=== PATIENT | male | born 1970 | race Caucasian/White ===

== ENCOUNTER 2023-05-04 15:09 | Outpatient (OUT) | payer OTHER, SELFPAY ==
--- NOTE | 2023-05-04 | XR_ITS ---
The [address] [address] Patient Name: SERENA CONTRERAS MRN: [id number] date: 1970 Sex: M Assigned Patient Location: Current Patient Location: Accession/Order Number: [id number] Exam Date: 05/04/2023 14:50 Report Date: 05/04/2023 15:32 At the request of: LUPE MCMAHON Procedure: XR foot RT min 3V PROCEDURE: XR foot RT min 3V COMPARISON: None. HISTORY: RIGHT FOOT PAIN FINDINGS: BONES:No acute fracture or dislocation. Enthesopathic spurring Achilles insertion of the calcaneus. Degenerative changes most significant at the first metatarsal-phalangeal joint SOFT TISSUES:Negative. No visible soft tissue swelling. EFFUSION:None visible. OTHER: Negative. XR/XR foot RT min 3V IMPRESSION: No acute abnormality Electronically authenticated by: CHARLEEN HARDY Date: 05/04/2023 15:32
== END 2023-05-04 15:10 | disposition home or self-care (01) ==
LOC: EC 15:09
PROVIDERS: Visit Provider Podiatrist Foot & Ankle Surgery
DX: M79.671 Pain in right foot (principal)
CPT/HCPCS: 73630

== ENCOUNTER 2023-06-02 20:08 | Emergency (ER) | payer OTHER, SELFPAY ==
[2023-06-02 20:12] VITALS: BP 157/91; PULSE 60; TEMP 36.3; O2SAT 98; BMI 26.4
--- OUTSIDE RECORDS SUMMARY | 2023-06-02 20:18 | XMS_ITS | CCD ---
Author Organization [facility] Care Team Providers Care Corporate Development Officer Name Role Phone JEN, DR SKY Admitting Unavailable JEN, DR SKY Attending Unavailable JEN, DR SKY Primary Care Unavailable JEN, DR SKY Consulting Unavailable LUPE DUVAL Consulting Unavailable DO Ishmael Hassan Attending Provider Ishmael Hassan Admitting Unavailable Itsylvester, Ishmael Attending Unavailable Itsylvester, Ishmael Primary Care Unavailable ANGELIQUE GUAJARDO Attending Unavailable JENJOSE DANIEL Attending Unavailable JENJOSE DANIEL Attending Unavailable KARLA NOLAN Attending Unavailable JEN, JOSE DANIEL Monge Attending Unavailable Problems Active Problems Problem Classification Problem Date Documented Da te Episodic/Chronic Other skin disorders (1 source) Localized swelling, mass and lump, neck; Translations: [Localized swelling, mass and lump, neck] Onset: 05-24-2022 Episodic Unclassified (3 sources) COUGH, UNSPECIFIED; Translations: [COUGH, UNSPECIFIED] Onset: 05-06-2022 Past or Other Problems Problem Classification Problem Date Documented Da te Episodic/Chronic Unclassified (1 source) COUGH, UNSPECIFIED; Translations: [COUGH, UNSPECIFIED] Onset: 05-05-2022 Results Test Name Value Interpretation Reference Range Facil fabián Daniel 05-24-2022 L --- Specimen: [id number] Received: 05/25/22 Status: CHARI Caldwellfaye Num: [id number] Spec Type: Surgical Subm Dr: Ishmael Hassan DO Tissues: A Lipoma (RT FOREARM) B Lipoma (POSTERIOR NECK) Procedures: HE/2, Gross/Micro L3/2 Age/ Patient Sex Location Account Attending Physician Serena Contreras 51/M OR [id number] Ishmael Hassan DO SPEC NUM: [id number] RECD: 05/25/22 STATUS: CHARI JUNAID NUM: [id number] [place]: 05/24/22- SUBM DR: Ishmael Hassan DO ENTERED: 05/25/[address]: [facility] SPEC TYPE: Surgical DEPT: S ORDERED: HE/2, Gross/Micro L3/2 ORDERED: HE/2, Gross/Micro L3/2 Pathological Diagnosis A. Soft tissue, right forearm, excision: - -Changes consistent with angiolipoma. B. Soft tissue, posterior neck, excision: - Changes consistent with lipoma. Clinical Information Posterior neck and right forearm mass Gross Description A. Received in formalin labeled with the patient's name, number and right forearm lipoma is a 2.5 x 2.4 x 1.2 cm portion of yellow, lobular fat but is partially surfaced by a thin, translucent membrane. The cut surface is yellow-de souza, lobular. Textile Artist sections are submitted in one cassette labeled A1. B. Received in formalin labeled with the patient's name, number and posterior neck lipoma is a 4.5 x 3.7 x 1.3 cm aggregate of yellow-de souza, rubbery tissue with a yellow, lobular cut surface. Textile Artist sections are submitted in one cassette labeled B1. Specimen: [id number] Received: 05/25/22 Status: CHARI Ching Num: [id number] Spec Type: Surgical Subm Dr: Ishmael Hassan DO Tissues: A Lipoma (RT FOREARM) B Lipoma (POSTERIOR NECK) Procedures: HE/Zabrina Sinclair/Micro L3/2 Patient: Serena Contreras [id number] (Continued) Specimen: Received: 05/25/22 (Continued) Signed (signature on file) Thao Vazquez MD 05/26/22 1055 Specimen: Received: 05/25/22 Status: CHARI Caldwellfaye Num: [id number] Spec Type: Surgical Subm Dr: Ishmael Hassan DO Tissues: A Lipoma (RT FOREARM) B Lipoma (POSTERIOR NECK) Procedures: HE/2, Gross/Micro L3/2 Patient: Serena Contreras [id number] (Continued) Specimen: Received: 05/25/22 (Continued) Microscopic Description A. One glass slide with H E stained material has been examined. The microscopic findings support the above pathologic diagnosis. B. One glass slide with H E stained material has been examined. The microscopic findings support the above pathologic diagnosis. CPT Codes 18471?2 Specimen: [id number] Received: 05/25/22 Status: CHARI Ching Num: [id number] Spec Type: Surgical Subm Dr: Ishmael Hassan DO Tissues: A Lipoma (RT FOREARM) B Lipoma (POSTERIOR NECK) Procedures: CHITRA, Zabrina/Micro L3/2 Patient: Serena Contreras [id number] (Continued) Signed (signature on file) Thao Vazquez MD 05/26/22 1055 Normal [facility] XR CHEST 2 Von 05-05-2022 XR CHEST 2 V EXAM: XR CHEST 2 V HISTORY: Cough COMPARISON: None. TECHNIQUE: Upright PA and lateral chest x-ray FINDINGS: The heart is not enlarged and the vasculature is not distended. No acute infiltrate, effusion or pneumothorax is identified. The osseous structures are grossly intact. IMPRESSION: No acute infiltrate or evidence of cardiac decompensation. Direct comparison with a previous study would be helpful in determining the chronicity of these findings. Electronically authenticated by: LUPE DUVAL Date: 2022-05-05 15:06 [facility] Encounters Encounter Date Encounter Type Care Provider Facility Start: 05-30-2023 End: 05-30-2023 ambulatory JOSE DANIEL LI Not Available Start: 05-18-2023 End: 05-18-2023 ambulatory KARLA NOLAN Not Available Start: 05-05-2023 End: 05-05-2023 ambulatory JOSE DANIEL Monge JEN Not Available Start: 04-19-2023 End: 04-19-2023 ambulatory ANGELIQUE GUAJARDO Not Available Start: 01-17-2023 End: 01-17-2023 ambulatory KYLELISA LI Not Available Start: 05-24-2022 End: 05-24-2022 ambulatory Ishmael Hassan [facility] Work Phone: Start: 05-24-2022 End: 05-24-2022 Departed Referred DO Ishmael Hassan Work Phone: [facility] [place] Work Phone: Start: 05-05-2022 End: 05-06-[address] JOSE DANIEL LI Facility: Payers Date Payer Category Payer Self-pay 1970 Unknown [id number] 1970 Unknown [id number] 1970 Unknown [id number] 1970 Unknown [id number] 1970 Unknown [id number] 1970 Unknown [id number] 1959 Unknown [id number] Private Health Insurance [facility] [id number] Unknown [id number] Social History Date Type Detail Facility Tobacco smoking stat [facility] Unknown if ever smoked [facility] Work Phone: Start: 1970 Sex Assigned At Male F [facility] Evaluation note Note Date & Type Note Facility Evaluation note No assessment information availa ble [facility] Work Phone: Summary Purpose Family History No Family History Records FoundNo Family History Records FoundNo Family History Records Found Advance Directives No Advanced Directives Records FoundNo Advanced Directives Records FoundNo Advanced Directives Records Found Additional Source Comments (unrecognized sect ion and content) No Status Records FoundNo Status Records FoundNo Status Records Found INFORMATION SOURCE (unrecogn ized section and content) DATE CREATED AUTHOR 05/07/2022 [facility] DATE CREATED AUTHOR AUTHOR'S ORGANIZ ATION 06/04/2022 [facility] DATE CREATED AUTHOR AUTHOR'S ORGANIZ ATION 05/31/2023 [facility] EPIC Care Teams (unrecognized sec tion and content) Team Status: Inactive Member Role Status Dates Ishmael Hassan DO Attending Provider Active Goals (unrecognized section and content) Goals may be documented in a n alternate section FOR RECORDS PERTAINING TO PATIENTS WHO ARE OR HAVE BEEN ENROLLED IN A CHEMICAL DEPENDENCY/SUBSTANCEABUSE PROGRAM, SOME INFORMATION MAY BE OMITTED. This clinical summary was aggregated from multiple sources. Caution should be exercised in using it in the provision of clinical care. This summary normalizes information from multiple sources, and as a consequence, information in this document may materially change the coding, format and clinical context of patient data. In addition, data may be omitted in some cases. CLINICAL DECISIONS SHOULD BE BASED ON THE PRIMARY CLINICAL RECORDS. [employer] [facility]. provides no warranty or guarantee of the accuracy or completeness of information in this document.
--- NOTE | 2023-06-02 20:27 | CT_ITS ---
The [address] [address] Patient Name: SERENA CONTRERAS MRN: [id number] date: 1970 Sex: M Assigned Patient Location: ER Current Patient Location: ED.MAIN Accession/Order Number: [id number] Exam Date: 06/02/2023 20:52 Report Date: 06/02/2023 21:19 At the request of: DHARA CHAIDEZ Procedure: CT abdomen pelvis w con EXAM: CT scan of the abdomen and pelvis using 100 mL of IV iodinated contrast. Dose reduction technique used: Automated exposure control and/or adjustment of the mA and/or kV according to patient size and/or use of iterative reconstruction technique. REASON FOR EXAM: rectal pain COMPARISON: CT scan dated 09/05/2020 FINDINGS: Wall thickening of the ascending colon over a long segment. Normal appendix. No free fluid in the abdomen or pelvis. No free intraperitoneal air. No dilated loops of small bowel or colon. No hydronephrosis or obstructing renal or ureteral calculi. Liver, pancreas, spleen, bilateral kidneys, and bilateral adrenal glands are otherwise unremarkable. No lymphadenopathy in the abdomen or pelvis. Remainder unremarkable. CT/CT abdomen pelvis w con IMPRESSION: Findings likely represent colitis involving the ascending colon. Electronically authenticated by: CHIDI MERCER Date: 06/02/2023 21:19
--- NOTE | 2023-06-02 20:28 | ED.GENADUL1 ---
Documented by User: MARICEL Willingham 06/02/23 21:39 HPI HPI - General Adult General Chief complaint: GI Bleed Stated complaint: Groin pain Time Seen by Provider: 06/02/23 20:15 Source: patient History of Present Illness HPI narrative: Patient is a 52-year-old male who presents to the emergency department for rectal pain and feeling like his prostate is swollen for the last several weeks. He was treated with 2 courses of doxycycline for suspected STI as he has been engaging in anal sex. He was tested for STI and was negative. He states he has had no significant urinary symptoms. He has not had any drainage from the anus. He states he has had rectal swelling. He continues to have increasing rectal pain. No fevers or vomiting. No significant abdominal pain. Related Data Home Medications ?Medication ?Instructions ?Recorded ?Confirmed levothyroxine 75 mcg tablet mcg 06/02/23 modafinil 200 mg tablet mg 06/02/23 trazodone 50 mg tablet mg 06/02/23 Previous Rx's ?Medication ?Instructions ?Recorded ciprofloxacin HCl 500 mg tablet 500 mg PO Q12H 10 days #20 tabs 06/02/23 hydrocodone 5 mg-acetaminophen 325 1 tab PO Q6H PRN pain 3 days #12 06/02/23 mg tablet tabs hyoscyamine sulfate 0.125 mg 0.125 mg PO Q6H PRN abdominal pain 06/02/23 tablet (Levsin) #12 tabs ketorolac 10 mg tablet 10 mg PO TID PRN pain #10 tabs 06/02/23 metronidazole 500 mg tablet 500 mg PO Q12H 10 days #20 tabs 06/02/23 ondansetron 4 mg disintegrating 4 mg PO Q6H PRN nausea and 06/02/23 tablet vomiting #12 tabs Allergies Allergy/AdvReac Type Severity Reaction Status Date / Time No Known Drug Allergies Allergy Verified 06/02/23 20:15 Opioid HPI Opioid Management Most Recent Opioid Data: No Data to Display Review of Systems ROS Constitutional Denies: fever or chills Ears, nose, mouth, and throat Denies: throat pain or nasal congestion Cardiovascular Denies: chest pain Respiratory Denies: shortness of breath or cough Gastrointestinal Reports: rectal pain and rectal swelling; Denies: abdominal pain, nausea or vomiting Genitourinary Denies: painful urination Musculoskeletal Denies: back pain Integumentary/Breast Denies: rash Neurological Denies: headache Hematologic/Lymphatic Denies: easy bruising or easy bleeding Exam Narrative Exam Narrative: Gen.: Awake, alert, in no distress Head: Normocephalic, atraumatic ENT: Moist mucous membranes Respiratory: No respiratory distress, lungs clear bilaterally Cardio: Regular rate and rhythm Gastrointestinal: Abdomen is soft, nondistended and nontender to palpation, Rectal exam performed with Swati Griffin RN at bedside throughout the duration of the exam. Rectal exam is tender, no visible masses, drainage or purulence per rectum. Extremities: Moves extremities equally Psych: Normal mood and affect Neuro: No focal neuro deficit Skin: Warm, dry, intact Constitutional Vital Signs, click to edit/add: Last Vital Signs Temp 97.4 F L 06/02/23 20:12 Pulse 60 06/02/23 20:12 Resp 18 06/02/23 20:12 BP 157/91 H 06/02/23 20:12 Pulse Ox 98 06/02/23 20:12 O2 Del Method Room Air 06/02/23 20:12 Course Vital Signs Vital signs: Vital Signs Temperature 97.4 F L 06/02/23 20:12 Pulse Rate 60 06/02/23 20:12 Respiratory Rate 18 06/02/23 20:12 Blood Pressure 157/91 H 06/02/23 20:12 Pulse Oximetry 98 06/02/23 20:12 Oxygen Delivery Method Room Air 06/02/23 20:12 Temperature 97.4 F L 06/02/23 20:12 Pulse Rate 60 06/02/23 20:12 Respiratory Rate 18 06/02/23 20:12 Blood Pressure 157/91 H 06/02/23 20:12 Pulse Oximetry 98 06/02/23 20:12 Oxygen Delivery Method Room Air 06/02/23 20:12 Medical Decision Making MDM Narrative Medical decision making narrative: Patient declined pain medication in the ER, he has stable vital signs. Labs are unremarkable, CT shows colitis. Patient placed on Cipro, Flagyl, short course of analgesics and Toradol with Levsin and Zofran for comfort. Abdomen is soft and benign. Follow-up PCP and return to the ER if symptoms change or worsen Medical Records Medical records reviewed: Yes I reviewed the patient's medical records Lab Data Lab results reviewed: Yes I reviewed the patient's lab results Labs: Lab Results 06/02/23 Range/Units 20:25 WBC 9.8 (4.0-11.0) 10^3/uL RBC 4.94 (4.70-6.10) 10^6/uL Hgb 14.1 (14.0-18.0) g/dL Hct 42.0 (42.0-54.0) % MCV 85.0 (80.0-94.0) fL MCH 28.5 (25.9-34.0) pg MCHC 33.6 (29.9-35.2) g/dL RDW 12.0 (11.0-15.0) % Plt Count 250 (150-450) 10^3/uL MPV 9.9 (9.5-13.5) fL Neut % (Auto) 53.0 (43.0-75.0) % Lymph % (Auto) 34.7 (20.5-60.0) % [place] % (Auto) 9.0 (1.7-12.0) % Eos % (Auto) 2.6 (0.9-7.0) % Baso % (Auto) 0.5 (0.2-2.0) % Neut # (Auto) 5.2 (1.4-6.5) 10^3/uL Lymph # (Auto) 3.4 (1.2-3.8) 10^3/uL [place] # (Auto) 0.9 H (0.3-0.8) 10^3/uL Eos # (Auto) 0.3 (0.0-0.7) 10^3/uL Baso # (Auto) 0.1 (0.0-0.1) 10^3/uL Abs Immat Gran (auto) 0.02 (0.00-0.03) 10^3/uL Imm/Tot Granulo (auto) 0.2 (0.0-0.5) % Sodium 131 L (136-145) mmol/L Potassium 4.1 (3.5-5.1) mmol/L Chloride 97 L (98-107) mmol/L Carbon Dioxide 23.6 (21.0-32.0) mmol/L Anion Gap 14.5 BUN 26.0 H (7.0-18.0) mg/dL Creatinine 1.19 (0.70-1.30) mg/dL Est GFR ( Amer) >60 (>=60) Est GFR (Non-Af Amer) >60 (>=60) BUN/Creatinine Ratio 21.8 Glucose 98 (74-106) mg/dL Lactate 0.8 (0.4-2.0) mmol/L Calcium 9.3 (8.5-10.1) mg/dL Total Bilirubin 0.4 (0.2-1.0) mg/dL AST 29 (15-37) U/L ALT 34 (16-63) U/L Alkaline Phosphatase 91 (46-116) U/L Total Protein 7.1 (6.4-8.2) g/dL Albumin 3.7 (3.4-5.0) g/dL Globulin 3.4 g/dL Albumin/Globulin Ratio 1.1 Urine Color Lt. yellow (YELLOW) Urine Clarity Clear (CLEAR) Urine pH 6.0 (5.0-9.0) Ur Specific Hilliards 1.015 (1.005-1.025) Urine Protein Negative (NEG/TRACE) mg/dL Urine Glucose (UA) Negative (NEGATIVE) mg/dL Urine Ketones Negative (NEGATIVE) mg/dL Urine Occult Blood Negative (NEGATIVE) Urine Nitrite Negative (NEGATIVE) Urine Bilirubin Negative (NEGATIVE) Urine Urobilinogen 0.2 (0.2-1.0) EU/dL Ur Leukocyte Esterase Negative (NEGATIVE) Imaging Data CT scan - abdomen: Attestation: I have reviewed the pertinent imaging results. Radiologist's impression: ITS Impressions Abdomen/Pelvis CT 06/02/23 20:27 IMPRESSION: Findings likely represent colitis involving the ascending colon. Electronically authenticated by: CHIDI MERCER Date: 06/02/2023 21:19 Discharge Plan Discharge Stand Alone Forms: Portal Instructions Chief Complaint: GI Bleed Clinical Impression: Colitis, Anal or rectal pain Patient Disposition: Home, Self-Care Time of Disposition Decision: 21:34 Condition: Good Prescriptions / Home Meds: New ciprofloxacin HCl 500 mg tablet 500 mg PO Q12H 10 Days Qty: 20 0RF ketorolac 10 mg tablet 10 mg PO TID PRN (Reason: pain) Qty: 10 0RF metronidazole 500 mg tablet 500 mg PO Q12H 10 Days Qty: 20 0RF ondansetron 4 mg tablet,disintegrating 4 mg PO Q6H PRN (Reason: nausea and vomiting) Qty: 12 0RF hydrocodone-acetaminophen 5-325 mg tablet 1 tab PO Q6H PRN (Reason: pain) 3 Days Qty: 12 0RF Rx Instructions: DX: R10.9 hyoscyamine sulfate [Levsin] 0.125 mg tablet 0.125 mg PO Q6H PRN (Reason: abdominal pain) Qty: 12 0RF No Action trazodone 50 mg tablet levothyroxine 75 mcg tablet modafinil 200 mg tablet Print Language: Surinamese Instructions: Clear Liquid Diet (ED), Colitis (ED) Referrals: Physician,Non-Staff, MD [Primary Care Provider] - 1 week Discharge Date/Time: 06/02/23 21:49 Documented by User: Scott Varela 06/03/23 20:15 HPI HPI - General Adult General Chief complaint: GI Bleed Stated complaint: Groin pain Time Seen by Provider: 06/02/23 20:15 Related Data Home Medications ?Medication ?Instructions ?Recorded ?Confirmed levothyroxine 75 mcg tablet mcg 06/02/23 modafinil 200 mg tablet mg 06/02/23 trazodone 50 mg tablet mg 06/02/23 Previous Rx's ?Medication ?Instructions ?Recorded ciprofloxacin HCl 500 mg tablet 500 mg PO Q12H 10 days #20 tabs 06/02/23 hydrocodone 5 mg-acetaminophen 325 1 tab PO Q6H PRN pain 3 days #12 06/02/23 mg tablet tabs hyoscyamine sulfate 0.125 mg 0.125 mg PO Q6H PRN abdominal pain 06/02/23 tablet (Levsin) #12 tabs ketorolac 10 mg tablet 10 mg PO TID PRN pain #10 tabs 06/02/23 metronidazole 500 mg tablet 500 mg PO Q12H 10 days #20 tabs 06/02/23 ondansetron 4 mg disintegrating 4 mg PO Q6H PRN nausea and 06/02/23 tablet vomiting #12 tabs Allergies Allergy/AdvReac Type Severity Reaction Status Date / Time No Known Drug Allergies Allergy Verified 06/02/23 20:15 Opioid HPI Opioid Management Most Recent Opioid Data: No Data to Display Exam Constitutional Vital Signs, click to edit/add: Last Vital Signs Temp 97.4 F L 06/02/23 20:12 Pulse 60 06/02/23 20:12 Resp 18 06/02/23 20:12 BP 157/91 H 06/02/23 20:12 Pulse Ox 98 06/02/23 20:12 O2 Del Method Room Air 06/02/23 20:12 Course Vital Signs Vital signs: Vital Signs Temperature 97.4 F L 06/02/23 20:12 Pulse Rate 60 06/02/23 20:12 Respiratory Rate 18 06/02/23 20:12 Blood Pressure 157/91 H 06/02/23 20:12 Pulse Oximetry 98 06/02/23 20:12 Oxygen Delivery Method Room Air 06/02/23 20:12 Temperature 97.4 F L 06/02/23 20:12 Pulse Rate 60 06/02/23 20:12 Respiratory Rate 18 06/02/23 20:12 Blood Pressure 157/91 H 06/02/23 20:12 Pulse Oximetry 98 06/02/23 20:12 Oxygen Delivery Method Room Air 06/02/23 20:12 Medical Decision Making MDM Narrative Medical decision making narrative: Patient declined pain medication in the ER, he has stable vital signs. Labs are unremarkable, CT shows colitis. Patient placed on Cipro, Flagyl, short course of analgesics and Toradol with Levsin and Zofran for comfort. Abdomen is soft and benign. Follow-up PCP and return to the ER if symptoms change or worsen For this patient encounter I reviewed the mid-level provider?s documentation, medical decision-making and treatment plan, and I personally spent time with this patient. Shared APC visit, physician attestation: [id number]: The visit was performed by both a physician and an APC. I performed all aspects of MDM as documented. - Vidya, DO Lab Data Labs: Lab Results 06/02/23 Range/Units 20:25 WBC 9.8 (4.0-11.0) 10^3/uL RBC 4.94 (4.70-6.10) 10^6/uL Hgb 14.1 (14.0-18.0) g/dL Hct 42.0 (42.0-54.0) % MCV 85.0 (80.0-94.0) fL MCH 28.5 (25.9-34.0) pg MCHC 33.6 (29.9-35.2) g/dL RDW 12.0 (11.0-15.0) % Plt Count 250 (150-450) 10^3/uL MPV 9.9 (9.5-13.5) fL Neut % (Auto) 53.0 (43.0-75.0) % Lymph % (Auto) 34.7 (20.5-60.0) % [place] % (Auto) 9.0 (1.7-12.0) % Eos % (Auto) 2.6 (0.9-7.0) % Baso % (Auto) 0.5 (0.2-2.0) % Neut # (Auto) 5.2 (1.4-6.5) 10^3/uL Lymph # (Auto) 3.4 (1.2-3.8) 10^3/uL [place] # (Auto) 0.9 H (0.3-0.8) 10^3/uL Eos # (Auto) 0.3 (0.0-0.7) 10^3/uL Baso # (Auto) 0.1 (0.0-0.1) 10^3/uL Abs Immat Gran (auto) 0.02 (0.00-0.03) 10^3/uL Imm/Tot Granulo (auto) 0.2 (0.0-0.5) % Sodium 131 L (136-145) mmol/L Potassium 4.1 (3.5-5.1) mmol/L Chloride 97 L (98-107) mmol/L Carbon Dioxide 23.6 (21.0-32.0) mmol/L Anion Gap 14.5 BUN 26.0 H (7.0-18.0) mg/dL Creatinine 1.19 (0.70-1.30) mg/dL Est GFR ( Amer) >60 (>=60) Est GFR (Non-Af Amer) >60 (>=60) BUN/Creatinine Ratio 21.8 Glucose 98 (74-106) mg/dL Lactate 0.8 (0.4-2.0) mmol/L Calcium 9.3 (8.5-10.1) mg/dL Total Bilirubin 0.4 (0.2-1.0) mg/dL AST 29 (15-37) U/L ALT 34 (16-63) U/L Alkaline Phosphatase 91 (46-116) U/L Total Protein 7.1 (6.4-8.2) g/dL Albumin 3.7 (3.4-5.0) g/dL Globulin 3.4 g/dL Albumin/Globulin Ratio 1.1 Urine Color Lt. yellow (YELLOW) Urine Clarity Clear (CLEAR) Urine pH 6.0 (5.0-9.0) Ur Specific [place]illi[place] 1.015 (1.005-1.025) Urine Protein Negative (NEG/TRACE) mg/dL Urine Glucose (UA) Negative (NEGATIVE) mg/dL Urine Ketones Negative (NEGATIVE) mg/dL Urine Occult Blood Negative (NEGATIVE) Urine Nitrite Negative (NEGATIVE) Urine Bilirubin Negative (NEGATIVE) Urine Urobilinogen 0.2 (0.2-1.0) EU/dL Ur Leukocyte Esterase Negative (NEGATIVE) Imaging Data CT scan - abdomen: Radiologist's impression: ITS Impressions Abdomen/Pelvis CT 06/02/23 20:27
[2023-06-02 20:52] LABS: Bilirubin Urine NEGATIVE (NEGATIVE); Blood Urine NEGATIVE (NEGATIVE); Clarity Urine CLEAR (CLEAR); Color Urine LT. YELLOW (YELLOW); Glucose Urine UA NEGATIVE (NEGATIVE); Ketones Urine NEGATIVE (NEGATIVE); Leukocyte Esterase Urine NEGATIVE (NEGATIVE); Nitrite Urine NEGATIVE (NEGATIVE); Protein Urine NEGATIVE (NEG/TRACE); Specific Gravity Urine 1.015 (1.005-1.025); Urine Microscopic Indicated NO; Urobilinogen Urine 0.2 EU/dL (0.2-1.0)
[2023-06-02 20:53] LABS: Basophils Absolute Auto 0.1 10^3/uL (0.0-0.1); Basophils Percent Auto 0.5 % (0.2-2.0); Eosinophils Absolute Auto 0.3 10^3/uL (0.0-0.7); Eosinophils Percent Auto 2.6 % (0.9-7.0); Hemoglobin 14.1 g/dL (14.0-18.0); Immature Granulocytes Abs Auto 0.02 10^3/uL (0.00-0.03); Immature Granulocytes Pct Auto 0.2 % (0.0-0.5); Lymphocytes Absolute Auto 3.4 10^3/uL (1.2-3.8); Lymphocytes Percent Auto 34.7 % (20.5-60.0); Mean Corpuscular HGB Conc 33.6 g/dL (29.9-35.2); Mean Corpuscular Hemoglobin 28.5 pg (25.9-34.0); Mean Platelet Volume 9.9 fL (9.5-13.5); Monocytes Absolute Auto 0.9 10^3/uL (0.3-0.8); Neutrophils Absolute Auto 5.2 10^3/uL (1.4-6.5); Platelet Count 250 10^3/uL (150-450); Red Blood Count 4.94 10^6/uL (4.70-6.10); White Blood Count 9.8 10^3/uL (4.0-11.0)
[2023-06-02 21:12] LABS: Lactate/Lactic Acid 0.8 mmol/L (0.4-2.0)
[2023-06-02 21:19] LABS: Alanine Aminotransferase 34 U/L (16-63); Albumin Globulin Ratio 1.1; Albumin Level 3.7 g/dL (3.4-5.0); Alkaline Phosphatase 91 U/L (46-116); Anion Gap 14.5; Aspartate Amino Transferase 29 U/L (15-37); BUN Creatinine Ratio 21.8; Bilirubin Total 0.4 mg/dL (0.2-1.0); Calcium 9.3 mg/dL (8.5-10.1); Carbon Dioxide 23.6 mmol/L (21.0-32.0); Chloride 97 mmol/L (98-107); Estimated GFR (African America >60 (>=60); Estimated GFR (Non-African Ame >60 (>=60); Globulin 3.4 g/dL; Glucose 98 mg/dL (74-106); Potassium 4.1 mmol/L (3.5-5.1); Sodium 131 mmol/L (136-145); Total Protein 7.1 g/dL (6.4-8.2)
[2023-06-02] MEDS: METRONIDAZOLE 250 MG TABLET 500 MG PO (21:43)
[2023-06-02] MEDS: HYDROCODONE/ACET 5-325 MG TABLET 2 TAB PO (21:44)
[2023-06-02] MEDS: CIPROFLOXACIN HCL 500 MG TABLET PO (21:44)
[2023-06-02] MEDS: KETOROLAC TROMETHAMINE 10 MG TABLET PO (21:44)
[2023-06-02] MEDS: ONDANSETRON 4 MG RAPDIS TABLET SL (21:44)
== END 2023-06-02 21:49 | disposition home or self-care (01) ==
PROVIDERS: Physician Assistant; Emergency Provider Emergency Medicine
DX: K52.9 Noninfective gastroenteritis and colitis, unspecified (principal); K62.89 Other specified diseases of anus and rectum
CPT/HCPCS: 36415; 74177; 80053; 81003; 83605; 85025; 99284; Q9967